=== PATIENT | male | born 1950 | race Caucasian/White ===

== ENCOUNTER 2022-04-06 09:11 | Inpatient (IN) | payer OTHER ==
[2022-04-06] MEDS ORDERED: SODIUM CHLORIDE 0.9% 500 ML 500 ML IV STA (09:17)
--- NOTE | 2022-04-06 09:26 | ED ---
General Adult HPI - General Chief complaint: Neuro Symptoms/Deficit Stated complaint: poss stroke Time Seen by Provider: 04/06/22 09:11 Source: patient, EMS, RN notes reviewed, old records reviewed Mode of arrival: EMS Limitations: no limitations - History of Present Illness Initial comments: This is a 72-year-old male who presents emergency Department with no significant past medical history. Patient comes in stating that he went to bed last night a t 9:00 until 5. Patient's states she woke up at 5:30 in the right side felt very heavy and he didn't get out of bed because he didn't feel right. Patient states he went back to sleep woke up a few hours later and was unable to lift his leg or move his right arm normally. Patient seemed to have some slurred speech according to EMS but the neighbor wasn't sure. Patient himself states he thinks his voice sounds normal. Patient denies any headache patient denies any left-sided symptoms. Patient denies any recent fever chills or cough per patient denies any chest pain patient denies any palpitations difficult breathing shortness of breath per patient denies any abdominal pain patient denies nausea vomiting diarrhea. - Related Data Allergies Allergy/AdvReac Type Severity Reaction Status Date / Time No Known Allergies Allergy Verified 04/06/22 09:16 Review of Systems ROS Statement: Those systems with pertinent positive or pertinent negative responses have been documented in the HPI. ROS Other: All systems not noted in ROS Statement are negative. Past Medical History Past Medical History: Hypertension History of Any Multi-Drug Resistant Organisms: None Reported Past Surgical History: Orthopedic Surgery Additional Past Surgical History / Comment(s): prostate Past Psychological History: No Psychological Hx Reported Smoking Status: Never smoker Past Alcohol Use History: None Reported Past Drug Use History: None Reported General Exam - General Exam Comments Initial Comments: GENERAL: Patient is well-developed and well-nourished. Patient is nontoxic and well- hydrated and is in no acute distress. ENT: Neck is soft and supple. No significant lymphadenopathy is noted. Oropharynx is clear. Moist mucous membranes. Neck has full range of motion without eliciting any pain. EYES: The sclera were anicteric and conjunctiva were pink and moist. Extraocular movements were intact and pupils were equal round and reactive to light. Eyelids were unremarkable. PULMONARY: Unlabored respirations. Good breath sounds bilaterally. No audible rales rhonchi or wheezing was noted. CARDIOVASCULAR: There is a regular rate and rhythm without any murmurs gallops or rubs. ABDOMEN: Soft and nontender with normal bowel sounds. SKIN: Skin is clear with no lesions or rashes and otherwise unremarkable. NEUROLOGIC: Patient is alert and oriented x3. Cranial nerves II through XII are grossly intact. Patient is weak with dorsiflexion on the right. Patient's c d reactor operator are equal bilaterally at this point. Speech seems slightly slurred to me. Symmetrical smile. Cerebellar testing is slightly off on the right finger to nose MUSCULOSKELETAL: Normal extremities with adequate strength and full range of motion. No lower extremity swelling or edema. No calf tenderness. LYMPHATICS: No significant lymphadenopathy is noted PSYCHIATRIC: Normal psychiatric evaluation. Limitations: no limitations Course Vital Signs 04/06/22 04/06/22 04/06/22 09:12 09:17 09:45 Temperature 98 F 98 F Pulse Rate 62 58 L 60 Respiratory 16 16 16 Rate Blood Pressure 189/99 189/91 168/85 O2 Sat by Pulse 100 99 99 Oximetry Medical Decision Making - Medical Decision Making EKG was interpreted by myself. EKG shows sinus bradycardia at 58 bpm HI inte rval is 227 QRSs 84 Q-T intervals 431 QTC is 427. Patient's EKG shows no ST segment elevation or depression. Was pt. sent in by a medical professional or institution ([facility], [employer], urgent care, hospital, or [place] health [place] facility...) When possible be specific @ -No Did you speak to anyone other than the patient for history (EMS, parent, family, police, friend...)? What history was obtained from this source @ -EMS gave their report and the treatment they provided and route Did you review nursing and triage notes (agree or disagree)? Why? @ -I reviewed and agree with nursing and triage notes Were old charts reviewed (outside hosp., previous admission, EMS record, old EKG, old radiological studies, urgent care reports/EKG's, [place] health [facility] facility records)? Report findings @ -No old charts were reviewed Differential Diagnosis (chest pain, altered mental status, abdominal pain women, abdominal pain men, vaginal bleeding, weakness, fever, dyspnea, syncope, headache, dizziness, GI bleed, back pain, seizure, CVA, palpatations, mental h ealth)? @ -CVA, TIA, cervical radiculopathy, lumbar radiculopathy, intracranial hemorrhage, paresthesias this is not an all inclusive list EKG interpreted by me (3pts min.). @ -As above X-rays interpreted by me (1pt min.). @ -Chest x-ray was interpreted by myself. X-ray shows no acute abnormality. CT interpreted by me (1pt min.). @ -Computed tomography scan of the brain was interpreted by myself. CT of the brain shows no acute abnormality. CT angiogram of the head and neck shows no acute abnormality per the radiologist U/S interpreted by me (1pt. min.). @ -None done What testing was considered but not performed or refused? (CT, X-rays, U/S, labs)? Why? @ -None What meds were considered but not given or refused? Why? @ -Alteplase was considered but since the patient was last seen normal at 9 PM last night he was out of the window. Did you discuss the management of the patient with other professionals (professionals i.e. , PA, MOTORCYCLE TESTER, lab, RT, psych nurse, social work nurse, vp customer service, teacher, special officer, social work case manager)? Give summary @ -I spoke with son physicians admitted the patient wrote admitting orders Was smoking cessation discussed for >3mins.? @ -No Was critical care preformed (if so, how long)? @ -Patient was a code stroke and I have documented 35 minutes of critical care time. Were there social determinants of health that impacted care today? How? (Homelessness, low income, unemployed, alcoholism, drug addiction, transportation, low edu. Level, literacy, decrease access to med. care, detention, rehab)? @ -No Was there de-escalation of care discussed even if they declined (Discuss DNR or withdrawal of care, Hospice)? DNR status @ -No What co-morbidities impacted this encounter? (DM, HTN, Smoking, COPD, CAD, Can cer, CVA, ARF, Chemo, Hep., AIDS, mental health diagnosis, sleep apnea, morbid obesity)? @ -None Was patient admitted / discharged? Hospital course, mention meds given and route, prescriptions, significant lab abnormalities, going to OR and other pertinent info. @ -Patient will be admitted. I spoke with son physicians here in agreement wit h admission for chest CT and CT angiogram of the head and neck show no acute normalities. Patient still has some residual deficit on the left foot for a while all other symptoms have resolved Undiagnosed new problem with uncertain prognosis? @ -CVA Drug Therapy requiring intensive monitoring for toxicity (Heparin, Nitro, Insulin, Cardizem)? @ -No Were any procedures done? @ -No Diagnosis/symptom? @ -CVA Acute, or Chronic, or Acute on Chronic? @ -Acute Uncomplicated (without systemic symptoms) or Complicated (systemic symptoms)? @ -Complicated Side effects of treatment? @ -No Exacerbation, Progression, or Severe Exacerbation? @ -No Poses a threat to life or bodily function? How? (Chest pain, [place], [place], pneumonia, PE, COPD, DKA, ARF, appy, cholecystitis, CVA, Diverticulitis, Homicidal, Suicidal, threat to staff... and all critical care pts) @ -Yes poses morbidity 2 patient's neurologic function - Lab Data Result diagrams: 04/06/22 09:18 04/06/22 09:18 Lab Results 04/06/22 04/06/22 04/06/22 Range/Units 09:18 09:18 09:18 WBC 8.8 (3.8-10.6) k/uL RBC 4.78 (4.30-5.90) m/uL Hgb 14.9 (13.0-17.5) gm/dL Hct 42.2 (39.0-53.0) % MCV 88.3 (80.0-100.0) fL MCH 31.2 (25.0-35.0) pg MCHC 35.3 (31.0-37.0) g/dL RDW 13.6 (11.5-15.5) % Plt Count 190 (150-450) k/uL MPV 10.1 Neutrophils % 91 % Lymphocytes % 6 % Monocytes % 3 % Eosinophils % 0 % Basophils % 0 % Neutrophils # 8.0 H (1.3-7.7) k/uL Lymphocytes # 0.5 L (1.0-4.8) k/uL Monocytes # 0.2 (0-1.0) k/uL Eosinophils # 0.0 (0-0.7) k/uL Basophils # 0.0 (0-0.2) k/uL PT 10.2 (9.0-12.0) sec INR 1.0 (<1.2) APTT 24.0 (22.0-30.0) sec Sodium 143 (137-145) mmol/L Potassium 3.5 (3.5-5.1) mmol/L Chloride 107 (98-107) mmol/L Carbon Dioxide 26 (22-30) mmol/L Anion Gap 10 mmol/L BUN 15 (9-20) mg/dL Creatinine 0.74 (0.66-1.25) mg/dL Est GFR (CKD-EPI)AfAm >90 (>60 ml/min/1.73 sqM) Est GFR (CKD-EPI)NonAf >90 (>60 ml/min/1.73 sqM) Glucose 135 H (74-99) mg/dL Calcium 8.5 (8.4-10.2) mg/dL Total Bilirubin 0.7 (0.2-1.3) mg/dL AST 31 (17-59) U/L ALT 30 (4-49) U/L Alkaline Phosphatase 133 H (38-126) U/L Troponin I (0.000-0.034) ng/mL Total Protein 6.8 (6.3-8.2) g/dL Albumin 4.4 (3.5-5.0) g/dL 04/06/22 Range/Units 09:18 WBC (3.8-10.6) k/uL RBC (4.30-5.90) m/uL Hgb (13.0-17.5) gm/dL Hct (39.0-53.0) % MCV (80.0-100.0) fL MCH (25.0-35.0) pg MCHC (31.0-37.0) g/dL RDW (11.5-15.5) % Plt Count (150-450) k/uL MPV Neutrophils % % Lymphocytes % % Monocytes % % Eosinophils % % Basophils % % Neutrophils # (1.3-7.7) k/uL Lymphocytes # (1.0-4.8) k/uL Monocytes # (0-1.0) k/uL Eosinophils # (0-0.7) k/uL Basophils # (0-0.2) k/uL PT (9.0-12.0) sec INR (<1.2) APTT (22.0-30.0) sec Sodium (137-145) mmol/L Potassium (3.5-5.1) mmol/L Chloride (98-107) mmol/L Carbon Dioxide (22-30) mmol/L Anion Gap mmol/L BUN (9-20) mg/dL Creatinine (0.66-1.25) mg/dL Est GFR (CKD-EPI)AfAm (>60 ml/min/1.73 sqM) Est GFR (CKD-EPI)NonAf (>60 ml/min/1.73 sqM) Glucose (74-99) mg/dL Calcium (8.4-10.2) mg/dL Total Bilirubin (0.2-1.3) mg/dL AST (17-59) U/L ALT (4-49) U/L Alkaline Phosphatase (38-126) U/L Troponin I <0.012 (0.000-0.034) ng/mL Total Protein (6.3-8.2) g/dL Albumin (3.5-5.0) g/dL Critical Care Time Critical Care Time: Yes Total Critical Care Time: 35 Disposition Clinical Impression: Cerebrovascular accident (CVA) Disposition: ADMITTED IP TO THIS [facility] Referrals: None,Stated [REFERRING] - 1-2 days Time of Disposition: 11:12
[2022-04-06 09:29] LABS: Basophils % (A) 0 %; Eosinophils % (A) 0 %; HCT 42.2 % (39.0-53.0); HGB 14.9 gm/dL (13.0-17.5); Lymphocytes # (A) 0.5 k/uL (1.0-4.8); Lymphocytes % (A) 6 %; MCH 31.2 pg (25.0-35.0); MCHC 35.3 g/dL (31.0-37.0); MCV 88.3 fL (80.0-100.0); Mean Platelet Volume 10.1; Monocytes # (A) 0.2 k/uL (0-1.0); Monocytes % (A) 3 %; Neutrophils % (A) 91 %; Platelet Count 190 k/uL (150-450); RBC 4.78 m/uL (4.30-5.90); RDW 13.6 % (11.5-15.5); WBC 8.8 k/uL (3.8-10.6)
--- NOTE | 2022-04-06 09:43 | CT ---
EXAMINATION TYPE: CT brain wo con for TPA CT DLP: 1104 mGycm, Automated exposure control for dose reduction was used. DATE OF EXAM: 04/06/2022 9:36 AM CLINICAL INDICATION:Male, 72 years old with history of Neuro deficit, acute, stroke suspected, Right side weakness TECHNIQUE: Brain: Axial CT images of the brain were obtained with coronal and sagittal reformats created and rev iewed. Contrast used: None. Oral contrast used: None. FINDINGS: Brain: Extra-axial spaces: No abnormal extra-axial fluid collections. Ventricular system: Dilatation in proportion to cerebral atrophy. Cerebral parenchyma: Cerebral atrophy. No acute intraparenchymal hemorrhage or mass effect. The voss -white junction is well differentiated. Scattered hypoattenuating areas are seen within the white mat ter. Cerebellum: Unremarkable. Mass effect: No evidence of midline shift. Intracranial vasculature: Atherosclerotic calcifications of the intracranial vessels. Soft tissues: Normal. Calvarium/osseous structures: No depressed skull fracture. Paranasal sinuses and mastoid air cells: Mild scattered paranasal sinus disease. Visualized orbits: Orbital contents are intact. IMPRESSION: 1. No acute intracranial process. 2. Nonspecific white matter changes, likely secondary to chronic small vessel ischemic disease.
[2022-04-06 09:50] LABS: Prothrombin Time 10.2 sec (9.0-12.0)
[2022-04-06 10:05] LABS: ALT 30 U/L (4-49); AST 31 U/L (17-59); African American GFR (CKD) >90 (>60 ml/min/1.73 sqM); Albumin 4.4 g/dL (3.5-5.0); Alkaline Phosphatase 133 U/L (38-126); Anion Gap 10 mmol/L; Blood Urea Nitrogen 15 mg/dL (9-20); Calcium 8.5 mg/dL (8.4-10.2); Carbon Dioxide 26 mmol/L (22-30); Chloride 107 mmol/L (98-107); Glucose 135 mg/dL (74-99); Non-African American GFR(CKD) >90 (>60 ml/min/1.73 sqM); Potassium 3.5 mmol/L (3.5-5.1); Sodium 143 mmol/L (137-145); Total Bilirubin 0.7 mg/dL (0.2-1.3); Total Protein 6.8 g/dL (6.3-8.2)
--- NOTE | 2022-04-06 10:15 | CT ---
EXAMINATION TYPE: CT angio head neck CT DLP: 444 mGycm, Automated exposure control for dose reduction was used. DATE OF EXAM: 04/06/2022 9:58 AM COMPARISON: CT head same day. CLINICAL INDICATION:Male, 72 years old with history of Neuro deficit, acute, stroke suspected; TECHNIQUE: Axially acquired helical CT angiogram of the head and neck was obtained with contrast. Axi al images are supplemented with 3D reconstructions [facility] NASCET criteria used. Contrast used: 65 mL of Isovue 370 Oral contrast used: None. FINDINGS: CTA HEAD: No evidence of acute intracranial hemorrhage, mass effect, or midline shift. The ventricles, sulci, a nd cisterns are unremarkable. The visualized portions of the internal carotid arteries, middle cerebral arteries, anterior cerebral arteries, and posterior cerebral arteries are patent. The basilar and vertebral arteries are patent. CTA NECK: Right Carotid System: The common carotid artery and external carotid artery are patent. The carotid bifurcation demonstrate s no evidence of hemodynamically significant stenosis. The remaining portions of the internal carotid artery demonstrate normal size without significant narrowing. Calcified atherosclerosis of the intra cranial internal carotid artery with blooming artifact which limits evaluation for stenosis. Left Carotid System: The common carotid artery and external carotid artery are patent. The carotid bifurcation demonstrate s no evidence of hemodynamically significant stenosis. The remaining portions of the internal carotid artery demonstrate normal size without significant narrowing. Calcified atherosclerosis of the intra cranial internal carotid artery with blooming artifact which limits evaluation for stenosis. Vertebral arteries are patent without evidence hemodynamically significant stenosis. There is a three-vessel aortic arch. The origins of the great vessels are patent. No evidence of hemo dynamically significant stenosis. IMPRESSION: 1. No evidence of dissection of the cervical internal carotid arteries or vertebral arteries or any e vidence of significant stenosis at the carotid bifurcations. 2. No evidence of intracranial high-grade stenosis or intracranial aneurysm.
--- NOTE | 2022-04-06 11:05 | XR ---
EXAMINATION TYPE: XR chest 2V DATE OF EXAM: 04/06/2022 10:35 AM COMPARISON: None TECHNIQUE: XR chest 2V Frontal and lateral views of the chest. CLINICAL INDICATION:Male, 72 years old with history of altered mental status; FINDINGS: Lungs/Pleura: There is no evidence of pleural effusion, focal consolidation, or pneumothorax. Pulmonary vascularity: Unremarkable. Heart/mediastinum: Cardiomediastinal silhouette is unremarkable. Musculoskeletal: No acute osseous pathology. IMPRESSION: No acute cardiopulmonary disease/process.
[2022-04-06] MEDS ORDERED: ASPIRIN 325 MG TAB PO STA (11:12)
--- NOTE | 2022-04-06 12:35 | P.HPIM ---
History of Present Illness H&P Date: 04/06/22 Chief Complaint: stroke Patient is a 72-year-old male with no significant past medical history presenting with strokelike symptoms. Last known normal was around 9 PM last night. He woke up this morning around 5 with right-sided weakness. He went back to sleep after feeling the weakness, and then woke up again a few hours later and was unable to lift his right leg or right arm. Per EMS, some slurred speech was also noted. Patient denies any recent chest pain, shortness of breath, abdominal pain, nausea, vomiting, palpitations, lightheadedness, urinary complaints, fevers, chills, travel history, or sick contacts. He denies any smoking, or illicit drug use. He however drinks occasionally, but sometimes drinks about 1 beer a day. In the ED, blood pressure was elevated to 180s, rest of the vital signs were otherwise within normal limits. Laboratory workup was unremarkable. CT head, CT angiogram did not show any acute process. Chest x-ray did not show any acute process. EKG showed sinus bradycardia with first-degree AV block. Patient seen and examined at bedside. Pertinent positives and negatives as discussed in HPI, a complete review of systems was performed and all other systems are negative. Vital signs reviewed General: nontoxic, no distress, appears at stated age Derm: warm, dry Head: atraumatic, normocephalic, symmetric Eyes: EOMI, no lid lag, anicteric sclera, pupils equal round reactive to light ENT: Nose and ears atraumatic Neck: No thyromegaly, supple Mouth: no lip lesion, mucus membranes moist Cardiovascular: S1S2 reg, no murmur, no edema Lungs: clear to auscultation bilateral, no rhonchi, no rales, no wheeze, no accessory muscle use Abdominal: soft, nontender to palpation, no guarding, no appreciable or ganomegaly Ext: no gross muscle atrophy, muscle strength muscle strength 4 out of 5 in right upper extremity, no contractures Neuro: CN II-XII grossly intact, dysarthria noted Psych: Alert, oriented, appropriate affect Assessment/Plan: Acute CVA Dysarthria Sinus bradycardia with first-degree AV block Alcohol use -Continue with permissive hypertension -Neurology consult -Echocardiogram, carotid ultrasound -Telemetry -Neuro checks -Lipid panel, A1c, TSH, -Continue aspirin and statin -PT/OT The patient is admitted with an anticipated greater than 2 midnight stay for evaluation of stroke. Surrogate decision-maker: Nephew CODE STATUS: Full code DVT prophylaxis: Subcu heparin Anticipated discharge date: Pending clinical course Anticipated discharge place: Pending clinical course A total of 58 minutes was spent on the care of this complex patient more than 50% of the time was spent in counseling and care coordination. Past Medical History Past Medical History: Hypertension History of Any Multi-Drug Resistant Organisms: None Reported Past Surgical History: Orthopedic Surgery Additional Past Surgical History / Comment(s): prostate Past Psychological History: No Psychological Hx Reported Smoking Status: Never smoker Past Alcohol Use History: None Reported Past Drug Use History: None Reported Medications and Allergies Home Medications Medication Instructions Recorded Confirmed Type No Known Home Medications 04/06/22 04/06/22 History Allergies Allergy/AdvReac Type Severity Reaction Status Date / Time No Known Allergies Allergy Verified 04/06/22 11:40 Physical Exam Vitals: Vital Signs Temp Pulse Resp BP Pulse Ox 04/06/22 09:45 60 16 168/85 99 04/06/22 09:17 98 F 58 L 16 189/91 99 04/06/22 09:12 98 F 62 16 189/99 100 Intake and Output 04/05/22 04/06/22 04/06/22 22:59 06:59 14:59 Other: Weight 72.575 kg Results CBC & Chem 7: 04/06/22 09:18 04/06/22 09:18 Labs: Abnormal Lab Results - Last 24 Hours (Table) 04/06/22 04/06/22 Range/Units 09:18 09:18 Neutrophils # 8.0 H (1.3-7.7) k/uL Lymphocytes # 0.5 L (1.0-4.8) k/uL Glucose 135 H (74-99) mg/dL Alkaline Phosphatase 133 H (38-126) U/L
[2022-04-06] MEDS ORDERED: CLOPIDOGREL 75 MG TAB PO STA (13:09)
--- NOTE | 2022-04-06 13:24 | P.CNNES ---
History of Present Illness Consult date: 04/06/22 Requesting physician: Victoriano Bruno Reason for Consult: CVA History of Present Illness: This is a 72-year-old gentleman with history of hypertension who presented emergency department because of right-sided weakness. According to the patient last normal state was yesterday about 9 PM. He stated that around 5 inch a.m. today he was at bed and was lying on his side and he felt his right side was weak and he got up and he continues to feel his right side was weak but denied any difficulty swallowing, visual disturbance, any numbness or tingling on the right side. He thought his symptoms would improve and they did not N by around 8 andry a.m. he decided that to come to the hospital. Patient denied of any neck pain. He presents to our facility today around 9:11am. Patient denies being on any antiplatelets or anticoagulation. Denies history of stroke. Denies of tobacco use. Or illicit drug use. He stated that he he has a diagnosis of hypertension and was notified by his physician in the past that he does not need to be on any medication. Some of the workup during our hospital visits consisted of: Initial blood pressure is 189/99. Otherwise rest of vitals are within normal limits. Initial serum glucose is 135 otherwise calcium AST ALT sodium BUN and creatinine is within normal limits PT, INR and PTT is within normal limits CT of the head is reported as no acute gram processes. Nonspecific white matter changes likely significant chronic small vessel ischemia. I personally reviewed the CT and there is no acute or subacute ischemia and there is no interpretable hemorrhage. CT angiography of the head and neck was reported as no evidence of dissection of cervical internal carotid arteries or vertebral artery or any evidence of significant stenosis at the carotid bifurcation. No evidence of intracranial high-grade stenosis or intracranial aneurysm. EKG is reported to sinus bradycardia with first-degree AV block with occasional PVC. Abnormal EKG. No IV TPA since last normal state was at 9 PM yesterday and the risk of TPA outweigh the benefit according to the ED team. Review of Systems Review of system: The 12 point system was reviewed and apparent positive and negative per HPI. Past Medical History Past Medical History: Hypertension History of Any Multi-Drug Resistant Organisms: None Reported Past Surgical History: Orthopedic Surgery Additional Past Surgical History / Comment(s): prostate Past Psychological History: No Psychological Hx Reported Smoking Status: Never smoker Past Alcohol Use History: None Reported Past Drug Use History: None Reported Medications and Allergies Home Medications Medication Instructions Recorded Confirmed Type No Known Home Medications 04/06/22 04/06/22 History Allergies Allergy/AdvReac Type Severity Reaction Status Date / Time No Known Allergies Allergy Verified 04/06/22 11:40 Physical Examination - Vital Signs Vital Signs: Vital Signs Temp Pulse Resp BP Pulse Ox 04/06/22 09:45 60 16 168/85 99 04/06/22 09:17 98 F 58 L 16 189/91 99 04/06/22 09:12 98 F 62 16 189/99 100 Intake and Output 04/05/22 04/06/22 04/06/22 22:59 06:59 14:59 Other: Weight 72.575 kg GENERAL: The patient is lying in bed and is not in acute distress. CHEST: The heart rate is regular rate rhythm. No murmurs to auscultation. LUNG: Clear to auscultation bilaterally no wheezing noted throughout. Not labored breathing. ABDOMEN/GI: Bowel sounds present in all 4 quadrants. No tenderness to palpation throughout. NEUROLOGICAL: Higher mental function: The patient is awake, alert, oriented to self, place and time. Patient is following commands. No aphasia and no neglect. Cranial nerves: The pupils are round, equal and reactive to light and ac commodation. Visual bah are full to confrontation throughout. Extraocular movement is intact no nystagmus is noted. Facial sensation is normal to touch throughout. The facial strength is normal throughout. Hearing is normal bilaterally to hand rub. Tongue is midline and moved [id number] without any difficulty. No dysarthria is noted. Shoulder shrug is normal bilaterally. Motor: The strength is right pronator drift and strength is 4+ and right hand machine operator replanter is 4+. Otherwise 5 over 5 throughout. Slight decrease tone over the right upper. Normal tone and bulk. Cerebellum: Had some difficulty with finger to nose on right but seems more weakness than ataxia or dysmetria. Otherwise normal on left. Sensation: Sensation is normal to touch throughout. Reflexes (right/left): 2+ throughout. Plantars are mute bilaterally. Results - Laboratory Findings CBC and BMP: 04/06/22 09:18 04/06/22 09:18 Abnormal Lab Findings: Abnormal Labs 01/08/23 01/08/23 09:18 09:18 Neutrophils # 8.0 H Lymphocytes # 0.5 L Glucose 135 H Alkaline Phosphatase 133 H Assessment and Plan Assessment: Acute right sided weakness seems due to likely acute ischemic stroke. Last normal as 9 PM on 04/05/22. On examination seems right lower has resolved and continues to have weakness on right upper. Escalated hypertension History of hypertension (medically managed) Plan: I ordered MRI of the brain to assess the size of the stroke. He denies of any neck pain suggestive of radiculopathy as well as his symptoms is acute onsets suggestive of acute ischemic stroke. But if MRI is negative consider MRI of the cervical spine. Rest of stroke workup are ordered: 2-D echo, lipid panel, carotid duplex by the primary team. TSH and hemoglobin A1c pending. Patient started on aspirin 81 mg daily and I started Plavix 75 mg daily (was not on antiplatelets at home). He was loaded with aspirin 325 once in the ED and I loaded him with Plavix 300 mg once. Continue Lipitor 40 mg daily for secondary stroke prophylaxis On neuro checks On cardiac monitoring PT OT and ST[employer]ARD[employer] are consulted Recommend permissive hypertension for 24 hours and then after that slowly lower the blood pressure to normotensive. We'll defer the rest of the medical management to primary team Fo DVT prophylaxis she is on subcu heparin 5000 units every 8 hours The plan was discussed with the patient and his nurse Thank you for the consultation Dr. Anderson will start neurology service tomorrow A.M. Time with Patient: Greater than 30
[2022-04-06] MEDS: ATORVASTATIN 40 MG TAB PO SCH (15:02)
[2022-04-06] MEDS: HEPARIN SODIUM,PORCINE/PF 5,000 UNIT/0.5 ML SYRINGE SQ SCH (16:53)
--- NOTE | 2022-04-06 21:55 | US ---
EXAMINATION TYPE: US carotid duplex BILAT DATE OF EXAM: 04/06/2022 COMPARISON: CTA neck earlier in day CLINICAL HISTORY: stoke. Weakness. HTN when first brought to from EMS. TECHNIQUE: Carotid duplex ultrasound examination. Indirect Doppler criteria was utilized. FINDINGS: EXAM MEASUREMENTS: RIGHT: Peak Systolic Velocity (PSV) cm/sec ----- Right CCA: 40.9 ----- Right ICA: 83.4 ----- Right ECA: 158.9 ICA/CCA ratio: 2.0 RIGHT: End Diastole cm/sec ----- Right CCA: 6.9 ----- Right ICA: 21.9 ----- Right ECA: 13.0 LEFT: Peak Systolic Velocity (PSV) cm/sec ----- Left CCA: 72.4 ----- Left ICA: 112.9 ----- Left ECA: 101.7 ICA/CCA ratio: 1.6 LEFT: End Diastole cm/sec ----- Left CCA: 9.8 ----- Left ICA: 19.2 ----- Left ECA: 8.5 VERTEBRALS (direction of flow): Right Vertebral: Antegrade Left Vertebral: Antegrade Rhythm: Normal SOFTWARE DEVELOPMENT COORDINATOR NOTES: Left elevated ECA velocity. No plaque visualized. IMPRESSION: No significant stenosis in either internal carotid artery. Findings correlate with more sensitive CT study earlier today. Criteria for Assigning % of Stenosis / Diameter reduction (Estimation based on the indirect measurements of the internal carotid artery velocities (ICA PSV). 1. Normal (no stenosis)=ICA PSV < 125 cm/s: ratio < 2.0: ICA EDV<40 cm/s. 2. Less than 50% stenosis=ICA PSV < 125 cm/s: ratio < 2.0: ICA EDV<40 cm/s. 3. 50 to 69% stenosis=ICA PSV of 125 to 230 cm/s: ration 2.0 ? 4.0: ICA EDV 40-100 cm/s. 4. Greater than 70% stenosis to near occlusion= ICA PSV > 230 cm/s: ratio > 4.0: ICA EDV > 100 cm/s. 5. Near occlusion= ICA PSV velocities may be low or undetectable: variable ratio and ICA EDV. 6. Total occlusion=unable to detect flow.
[2022-04-07] MEDS: HEPARIN SODIUM,PORCINE/PF 5,000 UNIT/0.5 ML SYRINGE SQ SCH ×4 (01:51→23:50)
[2022-04-07] MEDS ORDERED: ASPIRIN 325 MG TAB PO SCH (09:00)
[2022-04-07 09:02] LABS: Chol/HDL Ratio 3.83 Ratio; LDL Cholesterol,Calculated 122.6 mg/dL (0.0-131.0)
[2022-04-07] MEDS: CLOPIDOGREL 75 MG TAB PO SCH (09:14)
[2022-04-07] MEDS: ATORVASTATIN 40 MG TAB PO SCH (09:14)
[2022-04-07] MEDS: ASPIRIN 81 MG PO SCH (09:14)
--- NOTE | 2022-04-07 11:33 | P.PN ---
Subjective Progress Note Date: 04/07/22 Hospital Course: 72-year-old male with no significant past medical history presenting with strokelike symptoms. In the ED, blood pressure was elevated to 180s, rest of the vital signs were otherwise within normal limits. Laboratory workup was unremarkable. CT head, CT angiogram did not show any acute process. Chest x- ray did not show any acute process. EKG showed sinus bradycardia with first- degree AV block. Carotid ultrasound unremarkable. MRI brain and echocardiogram pending. Neurology following. Subjective: Patient seen and examined at bedside. No acute events overnight. He denies any further weakness. He claims that his strength in right upper extremity is slowly coming back. He denies any trouble swallowing. He denies any chest pain, shortness of breath, abdominal pain, urinary or bowel complaints. Pertinent positives and negatives as discussed above, a complete review of systems was performed and all other systems are negative. Vitals Signs Reviewed. General: nontoxic, no distress, appears at stated age Derm: warm, dry Head: atraumatic, normocephalic, symmetric Eyes: EOMI, no lid lag, anicteric sclera, pupils equal round reactive to light ENT: Nose and ears atraumatic Neck: No thyromegaly, supple Mouth: no lip lesion, mucus membranes moist Cardiovascular: S1S2 reg, no murmur, no edema Lungs: clear to auscultation bilateral, no rhonchi, no rales, no wheeze, no accessory muscle use Abdominal: soft, nontender to palpation, no guarding, no appreciable organomegaly Ext: no gross muscle atrophy, muscle strength muscle strength 4 out of 5 in right upper extremity, no contractures Neuro: CN II-XII grossly intact Psych: Alert, oriented, appropriate affect Assessment and Plan: Acute CVA Dysarthria -Neurology consult -Echocardiogram pending -carotid ultrasound unremarkable -Telemetry -Neuro checks -A1c and TSH within normal limits. -Total cholesterol 199, LDL 122. -Continue aspirin and statin, started on Plavix per neurology -Pending MRI brain -PT/OT Sinus bradycardia with first-degree AV block - Telemetry Alcohol use -Monitor for any withdrawal symptoms Hypertension -We'll start on amlodipine DVT ppx: Subcutaneous heparin Code status: Full code Anticipated discharge place: Home Anticipated discharge time: Clinic tomorrow Objective - Vital Signs Vital signs: Vital Signs Temp 98.3 F 04/06/22 16:09 Pulse 66 04/07/22 10:00 Resp 21 04/07/22 10:00 BP 166/90 04/07/22 10:00 Pulse Ox 99 04/07/22 10:00 FiO2 Intake & Output 04/06/22 04/07/22 04/07/22 18:59 06:59 18:59 Weight 72.575 kg - Labs CBC & Chem 7: 04/06/22 09:18 04/06/22 09:18
[2022-04-07] MEDS: amLODIPine 5 MG TAB PO SCH (12:33)
--- NOTE | 2022-04-07 13:47 | MR ---
EXAMINATION TYPE: MR brain wo con DATE OF EXAM: 04/07/2022 COMPARISON: CT brain 1 day earlier HISTORY: Right sided weakness, stroke TECHNIQUE: Multiplanar, multisequence imaging of the brain and brainstem is performed without IV cont rast. FINDINGS: Suboptimal study with some motion artifact aggravation. Diffusion weighted images demonstrate areas of increased signal on diffusion-weighted images with dim inished signal on ADC mapping involving the left aspect of the mid to lower greatest along the ventra l aspect axial image 48 series 303 showing subtle T2 hyperintensity consistent with evolving acute in farct. There is mild to moderate diffuse ventricular and sulcal prominence. There are few scattered tiny foc i of T2 hyperintensity that are seen throughout the white matter bilaterally Midline structures demonstrate normal morphology. The craniocervical junction appears within normal limits. Normal vascular flow voids are present. The visualized sinuses are clear and the globes are i ntact. Nasal septum redemonstrated deviated to right of midline. IMPRESSION: 1. Evolving acute lacunar infarct through the left mid to lower greatest along the ventral aspect. 2. Background mild to moderate diffuse cerebral atrophy and mild chronic small vessel ischemic change redemonstrated. Results communicated to ordering neurologist at time of dictation
--- NOTE | 2022-04-07 18:57 | P.PN ---
Subjective Progress Note Date: 04/07/22 Patient initially seen by Dr. Clarence Cabral. Please refer to his note for details. Patient is a 72-year-old right-handed male presenting with right-sided weakness. Patient did not receive IV TPA. Patient was started on aspirin and Plavix and statins. Patient denies diabetes. He does have hypertension. Patient says that she is feeling better. He is feeling good. His right leg is improving. He can lift his right leg much higher. No pain. He can lift his right arm. He can open his hand now which she was not able to do before. Denies any problems with double vision, nausea vomiting or dysphagia. Objective - Vital Signs Vital signs: Vital Signs Temp 97.4 F L 04/07/22 14:00 Pulse 88 04/07/22 14:00 Resp 14 04/07/22 14:00 BP 183/97 04/07/22 14:00 Pulse Ox 96 04/07/22 14:00 FiO2 Intake & Output 04/06/22 04/07/22 04/07/22 18:59 06:59 18:59 Weight 72.575 kg - Exam Patient is an elderly male, very pleasant, in no acute distress. Patient is alert awake oriented to time place and person. Speech and language functions are normal. Patient can name and repeat very well. No aphasia or dysarthria. Attention, concentration and fund of knowledge is adequate. On cranial nerve examination, pupils are equal, round and reacting to light, visual bah are full on confrontation, with no neglect on double simultaneous stimulation. Extraocular muscles are intact with no nystagmus. Face is symmetric, tongue protrudes to the midline. Palatal elevation and sensation normal, hearing and shoulder shrug normal, facial sensation normal. On muscle strength testing, there is right pronation, no drift and the strength is normal in arms and legs distally and proximally. Plantars are downgoing bilaterally. Sensory to touch is equal with no neglect on double simultaneous stimulation. Cerebellar function showed no ataxia for toykaa-ko-peol testing. No dysdiadochokinesia. No ataxia for [id number]-ia-[id number] testing on either side. Tone and bulk of muscles normal. Gait deferred.. On general examination, there is no carotid bruit or murmur, S1-S2 audible. Chest is clear on consultation. Abdomen is soft nontender. No organomegaly, fariha wel sounds present. Peripheral pulses are present. No edema. - Labs CBC & Chem 7: 04/06/22 09:18 04/06/22 09:18 Assessment and Plan Assessment: Acute ischemic stroke, left medullary region. Last normal as 9 PM on 04/05/22. Patient's examination almost normal, except for right pronation, no drift. Escalated hypertension History of hypertension (medically managed) Hyperlipidemia Plan: MRI of the brain revealed evolving acute lacunar infarct to the left mid to lower greatest along the ventral aspect. Mild to moderate diffuse cerebral atrophy and mild chronic small vessel ischemic change. I personally reviewed MRI, agree with the findings. The infarct involves the upper medulla left medial region ventrally. CT angiography of the head and neck was reported as no evidence of dissection of cervical internal carotid arteries or vertebral artery or any evidence of significant stenosis at the carotid bifurcation. No evidence of intracranial high-grade stenosis or intracranial aneurysm. Carotid Doppler revealed no significant stenosis in either ICA. Antegrade flow in both vertebral arteries. EKG is reported to sinus bradycardia with first-degree AV block with occasional PVC. Abnormal EKG. Lipid panel with cholesterol 199, LDL 122, HDL 52 and triglycerides 122. Patient has not been taking Lipitor for 2 years. We will resume his previous dose of Lipitor 40 mg daily to target LDL <70. Hemoglobin A1c 5.4. TSH normal 1.13 2-D echo, still pending. Patient started on aspirin 81 mg daily (after a loading dose of 325 mg in the ER) and Dr. Cabral started Plavix 75 mg daily after a load of 300 mg (was not on any antiplatelets at home). On neuro checks On cardiac monitoring, so far showing sinus rhythm, sinus bradycardia in 40s and some PVCs. PT OT and KEYPUNCH OPERATORS SUPERVISOR are consulted Recommend permissive hypertension for 24-48 hours and then after that slowly lower the blood pressure to normotensive. We'll defer the rest of the medical management to primary team Fo DVT prophylaxis she is on subcu heparin 5000 units every 8 hours Neurologically clear, once 2-D echo is cleared.
[2022-04-08] MEDS: ATORVASTATIN 40 MG TAB PO SCH (09:27)
[2022-04-08] MEDS: ASPIRIN 81 MG PO SCH (09:27)
[2022-04-08] MEDS: CLOPIDOGREL 75 MG TAB PO SCH (09:28)
[2022-04-08] MEDS: amLODIPine 5 MG TAB PO SCH (09:28)
[2022-04-08] MEDS: HEPARIN SODIUM,PORCINE/PF 5,000 UNIT/0.5 ML SYRINGE SQ SCH ×3 (09:28→23:14)
[2022-04-08 09:38] VITALS: RESP 16
--- NOTE | 2022-04-08 11:05 | CA ---
Transthoracic Echo Report Name: Henrik Pina Age: 72 Gender: M : 1950 Exam Date: 04/08/2022 09:03 Exam Location: [facility] Ht (in): 68 Wt (lb): 160 Ordering Physician: Balbir Bah MD Attending/Referring Phys: Swaging Machine Operator Debbi Akers RDCS Procedure CPT: Indications: stroke Cardiac Hx: Technical Quality: Contrast 1: Total Dose (mL): Contrast 2: Total Dose (mL): MEASUREMENTS (Male / Female) Normal Values 2D ECHO LV Diastolic Diameter PLAX 4.2 cm 4.2 - 5.9 / 3.9 - 5.3 cm LV Systolic Diameter PLAX 3.3 cm IVS Diastolic Thickness 0.9 cm 0.6 - 1.0 / 0.6 - 0.9 cm LVPW Diastolic Thickness 1.2 cm 0.6 - 1.0 / 0.6 - 0.9 cm LV Relative Wall Thickness 0.5 RV Internal Dim ED PLAX 2.9 cm LA Systolic Diameter LX 3.0 cm 3.0 - 4.0 / 2.7 - 3.8 cm LV Diastolic Volume MOD BP 49.8 cm??? 67 - 155 / 56 - 104 cm??? LV Systolic Volume MOD BP 20.4 cm??? 22 - 58 / 19 - 49 cm??? LV Ejection Fraction MOD BP 58.9 % >= 55 % LV Diastolic Volume MOD 4C 56.6 cm??? LV Systolic Volume MOD 4C 24.4 cm??? LV Ejection Fraction MOD 4C 56.9 % LV Diastolic Length 4C 7.8 cm LV Systolic Length 4C 6.9 cm LV Diastolic Volume MOD 2C 40.8 cm??? LV Systolic Volume MOD 2C 15.9 cm??? LV Ejection Fraction MOD 2C 61.1 % LV Diastolic Length 2C 7.2 cm LV Systolic Length 2C 6.2 cm LA Volume 49.2 cm??? 18 - 58 / 22 - 52 cm??? M-MODE Aortic Root Diameter MM 2.5 cm LA Systolic Diameter MM 3.7 cm LA Ao Ratio MM 1.5 MV E Point Septal Separation 0.7 cm AV Cusp Separation MM 1.9 cm DOPPLER MV Area PHT 3.1 cm??? Mitral E Point Velocity 71.0 cm/s Mitral A Point Velocity 80.7 cm/s Mitral E to A Ratio 0.9 MV Deceleration Time 244.9 ms MV E' Velocity 7.3 cm/s Mitral E to MV E' Ratio 9.7 TR Peak Velocity 162.9 cm/s TR Peak Gradient 10.6 mmHg Right Ventricular Systolic Press 15.6 mmHg FINDINGS Left Ventricle Left ventricular ejection fraction is estimated at 55 %. Left ventricular cavity size normal. Mildly increased left ventricular wall thickness. Right Ventricle Normal right ventricular size and function. Right ventricular systolic pressure within normal limits. Right Atrium Normal right atrial size. Left Atrium Normal left atrial size. Mitral Valve Structurally normal mitral valve. Mild mitral regurgitation. Aortic Valve Trileaflet aortic valve. Aortic valve sclerosis. Tricuspid Valve Structurally normal tricuspid valve. Mild tricuspid regurgitation. Pulmonic Valve Structurally normal pulmonic valve. Pericardium Echo free space anterior to the right ventricle likely represents a fat pad. Aorta Normal size aortic root and proximal ascending aorta. CONCLUSIONS Normal LV size and systolic function with mild concentric LVH. It is mild mitral and tricuspid insufficiency. There is mild mitral annular calcification and aortic valve sclerosis without restriction. There is probably a fat pad. Previewed by: Dr. Deisy Floyd MD (Electronically Signed) Final Date: 08 April 2022 11:04
--- NOTE | 2022-04-08 13:48 | P.PN ---
Subjective Progress Note Date: 04/08/22 Hospital Course: 72-year-old male with no significant past medical history presenting with strokelike symptoms. In the ED, blood pressure was elevated to 180s, rest of the vital signs were otherwise within normal limits. Laboratory workup was unremarkable. CT head, CT angiogram did not show any acute process. Chest x- ray did not show any acute process. EKG showed sinus bradycardia with first- degree AV block. Carotid ultrasound unremarkable. MRI brain showed evolving acute lacunar infarct through the left mid to lower greatest along the ventral aspect. Echocardiogram showed normal LV size and systolic function with mild concentric LVH, mild MR and TR.. Neurology following. Subjective: Patient seen and examined at bedside. No acute events overnight. He denies any further weakness. He claims that his strength in right upper extremity is almost back to normal. He denies any trouble swallowing. He denies any chest pain, shortness of breath, abdominal pain, urinary or bowel complaints. Pertinent positives and negatives as discussed above, a complete review of s ystems was performed and all other systems are negative. Vitals Signs Reviewed. General: nontoxic, no distress, appears at stated age Derm: warm, dry Head: atraumatic, normocephalic, symmetric Eyes: EOMI, no lid lag, anicteric sclera, pupils equal round reactive to light ENT: Nose and ears atraumatic Neck: No thyromegaly, supple Mouth: no lip lesion, mucus membranes moist Cardiovascular: S1S2 reg, no murmur, no edema Lungs: clear to auscultation bilateral, no rhonchi, no rales, no wheeze, no accessory muscle use Abdominal: soft, nontender to palpation, no guarding, no appreciable organom egaly Ext: no gross muscle atrophy, muscle strength muscle strength 5 out of 5 in all extremities, no contractures Neuro: CN II-XII grossly intact Psych: Alert, oriented, appropriate affect Assessment and Plan: Acute CVA Dysarthria -Neurology consult -Echocardiogram pending normal LV function -carotid ultrasound unremarkable -Telemetry -Neuro checks -A1c and TSH within normal limits. -Total cholesterol 199, LDL 122. -Continue aspirin and statin, and on Plavix per neurology -MRI brain shows lacunar infarct -PT/OT Sinus bradycardia with first-degree AV block - Telemetry Alcohol use -Monitor for any withdrawal symptoms Hypertension -on amlodipine DVT ppx: Subcutaneous heparin Code status: Full code Anticipated discharge place: Home Anticipated discharge time: tomorrow Objective - Vital Signs Vital signs: Vital Signs Temp 97.8 F 04/08/22 12:24 Pulse 64 04/08/22 12:24 Resp 16 04/08/22 12:24 BP 173/83 04/08/22 12:24 Pulse Ox 99 04/08/22 12:24 FiO2 Intake & Output 04/07/22 04/08/22 04/08/22 18:59 06:59 18:59 Intake Total 236 Balance 236 Intake: Oral 236 Other: # Voids 2 - Labs CBC & Chem 7: 04/06/22 09:18 04/06/22 09:18
[2022-04-09 04:05] VITALS: TEMP 97.7
[2022-04-09] MEDS: HEPARIN SODIUM,PORCINE/PF 5,000 UNIT/0.5 ML SYRINGE SQ SCH (09:25)
[2022-04-09] MEDS: amLODIPine 5 MG TAB PO SCH (09:25)
[2022-04-09] MEDS: ATORVASTATIN 40 MG TAB PO SCH (09:26)
[2022-04-09] MEDS: ASPIRIN 81 MG PO SCH (09:26)
[2022-04-09] MEDS: CLOPIDOGREL 75 MG TAB PO SCH (09:26)
[2022-04-09 09:44] VITALS: BP 150/87; PULSE 59
--- NOTE | 2022-04-09 12:13 | P.PN ---
Subjective Progress Note Date: 04/08/22 04/08/2022: Patient was seen for a follow-up. Patient offers no complaints. All symptoms have resolved. 04/07/2022: Patient initially seen by Dr. Clarence Cabral. Please refer to his note for details. Patient is a 72-year-old right-handed male presenting with right-sided weakness. Patient did not receive IV TPA. Patient was started on aspirin and Plavix and statins. Patient denies diabetes. He does have hypertension. Patient says that she is feeling better. He is feeling good. His right leg is improving. He can lift his right leg much higher. No pain. He can lift his right arm. He can open his hand now which she was not able to do before. Denies any problems with double vision, nausea vomiting or dysphagia. Objective - Vital Signs Vital signs: Vital Signs Temp 97.8 F 04/08/22 12:24 Pulse 64 04/08/22 12:24 Resp 16 04/08/22 12:24 BP 173/83 04/08/22 12:24 Pulse Ox 99 04/08/22 12:24 FiO2 Intake & Output 04/07/22 04/08/22 04/08/22 18:59 06:59 18:59 Intake Total 236 Balance 236 Intake: Oral 236 Other: # Voids 2 - Exam Patient is an elderly male, very pleasant, in no acute distress. Patient is alert awake oriented to time place and person. Speech and language functions are normal. Patient can name and repeat very well. No aphasia or dysarthria. Attention, concentration and fund of knowledge is adequate. On cranial nerve examination, pupils are equal, round and reacting to light, visual bah are full on confrontation, with no neglect on double simultaneous stimulation. Extraocular muscles are intact with no nystagmus. Face is symmetric, tongue protrudes to the midline. Palatal elevation and sensation normal, hearing and shoulder shrug normal, facial sensation normal. On muscle strength testing, there is right pronation, no drift and the strength is normal in arms and legs distally and proximally. Plantars are downgoing bilaterally. Sensory to touch is equal with no neglect on double simultaneous stimulation. Cerebellar function showed no ataxia for [id number] testing. No dysdiadochokinesia. No ataxia for [id number] testing on either side. Tone and bulk of muscles normal. Gait deferred.. On general examination, there is no carotid bruit or murmur, S1-S2 audible. Chest is clear on consultation. Abdomen is soft nontender. No organomegaly, bowel sounds present. Peripheral pulses are present. No edema. - Labs CBC & Chem 7: 04/06/22 09:18 04/06/22 09:18 Assessment and Plan Assessment: Acute ischemic stroke, left medullary region. Patient's examination almost normal, except for right pronation, no drift. Escalated hypertension History of hypertension (medically managed) Hyperlipidemia Plan: MRI of the brain revealed evolving acute lacunar infarct involving the left medullary region greatest along the ventral aspect. Mild to moderate diffuse cerebral atrophy and mild chronic small vessel ischemic change. I personally reviewed MRI, agree with the findings. The infarct involves the upper medulla left medial region ventrally. CT angiography of the head and neck was reported as no evidence of dissection of cervical internal carotid arteries or vertebral artery or any evidence of significant stenosis at the carotid bifurcation. No evidence of intracranial high-grade stenosis or intracranial aneurysm. Carotid Doppler revealed no significant stenosis in either ICA. Antegrade flow in both vertebral arteries. Lipid panel with cholesterol 199, LDL 122, HDL 52 and triglycerides 122. Patient has not been taking Lipitor for 2 years. We will resume his previous dose of Lipitor 40 mg daily to target LDL <70. Hemoglobin A1c 5.4. TSH normal 1.13 2-D echo, revealed normal left-ventricular size and systolic function with mild concentric LVH. Mild mitral and tricuspid insufficiency. Mild mitral annular calcification and aortic valve sclerosis without restriction. Left atrial size is normal. Patient started on aspirin 81 mg daily (after a loading dose of 325 mg in the ER) and Dr. Cabral started Plavix 75 mg daily after a load of 300 mg (was not on any antiplatelets at home). Recommend patient stay on dual antiplatelet medication for 21 days and then stop Plavix and continue aspirin indefinitely. On cardiac monitoring, so far showing sinus rhythm, sinus bradycardia in 40s and some PVCs. PT OT and [employer] are consulted Optimize control of blood pressure to target <130/80. We'll defer the rest of the medical management to primary team Fo DVT prophylaxis she is on subcu heparin 5000 units every 8 hours Neurologically clear for discharge.
--- NOTE | 2022-04-09 14:23 | P.DS ---
Providers Date of admission: 04/06/22 11:12 Expected date of discharge: 04/09/22 Attending physician: Jessica Gutierrez MD Consults: 04/06/22 11:13 Consult Physician Routine Consulting Provider: Clarence Cabral Consult Reason/Comments: CVA Do you want consulting provider notified?: Yes Primary care physician: Physician Nonstaff Hospital Course: Assessment and Plan: Acute CVA Dysarthria Sinus bradycardia with first-degree AV block Alcohol use Hypertension 72-year-old male with no significant past medical history presenting with strokelike symptoms. In the ED, blood pressure was elevated to 180s, rest of the vital signs were otherwise within normal limits. Laboratory workup was unremarkable. CT head, CT angiogram did not show any acute process. Chest x- ray did not show any acute process. EKG showed sinus bradycardia with first- degree AV block. Carotid ultrasound unremarkable. MRI brain showed evolving acute lacunar infarct through the left mid to lower greatest along the ventral aspect. Echocardiogram showed normal LV size and systolic function with mild concentric LVH, mild MR and TR.. Neurology followed along with appropriate recommendations. Patient was discharged home with 21 days of plavix, as well as lifelong aspirin, atorvastatin, and amlodipine. He will f/u with PCP I spent 34 minutes coordinating this discharge. Gen: awake, alert HEENT: normocephalic, atraumatic, good hearing acuity, moist mucous membranes Resp: good air exchange, breathing comfortably with no accessory muscle use CVS: good distal perfusion x 4, GI: soft, NTTP, ND : no SPT, no CVAT, lim catheter not present MSK: no pitting edema, no clubbing Neuro: non-focal, moving all extremities Psych: cooperative, euthymic mood Patient Condition at Discharge: Good Plan - Discharge Summary Discharge Rx Participant: No New Discharge Prescriptions: New Aspirin 81 mg PO DAILY #30 tab Atorvastatin [Lipitor] 40 mg PO DAILY #30 tab amLODIPine [Norvasc] 5 mg PO DAILY #30 tab Clopidogrel [Plavix] 75 mg PO DAILY #21 tab Discharge Medication List Aspirin 81 mg PO DAILY #30 tab 04/09/22 [Rx] Atorvastatin [Lipitor] 40 mg PO DAILY #30 tab 04/09/22 [Rx] Clopidogrel [Plavix] 75 mg PO DAILY #21 tab 04/09/22 [Rx] amLODIPine [Norvasc] 5 mg PO DAILY #30 tab 04/09/22 [Rx] Follow up Appointment(s)/Referral(s): None,Stated [REFERRING] - 1-2 days Patient Instructions/Handouts: Ischemic Stroke (GEN) Activity/Diet/Wound Care/Special Instructions: Among your new medications are: Aspirin, Atorvastatin, Amlodipine, and Plavix Aspirin and Plavix are for you're stroke treatment and future prevention - take Aspirin daily henceforth unless otherwise advised by your primary care physician. Take Plavix (clopidogrel) for 21 days, then stop taking this medication unless otherwise advised by your neurologist. Atorvastatin is for your cholesterol and for stroke prevention - take atorvastatin henceforth unless otherwise advised by your primary care physician Amlodipine is for your blood pressure - take amlodipine henceforth unless otherwise advised by your primary care physician Discharge Disposition: HOME SELF-CARE
== END 2022-04-09 14:07 | disposition home or self-care (01) | DRG 65 ==
LOC: EC 09:11 → 3SCARD 11:12
PROVIDERS: ADMIT Family Medicine; ATTEND Family Medicine
DX: I63.81 Other cerebral infarction due to occlusion or stenosis of small artery (principal); G81.91 Hemiplegia, unspecified affecting right dominant side; I10 Essential (primary) hypertension; I44.0 Atrioventricular block, first degree; I08.3 Combined rheumatic disorders of mitral, aortic and tricuspid valves; R47.1 Dysarthria and anarthria; E78.5 Hyperlipidemia, unspecified; R00.1 Bradycardia, unspecified; F10.90 Alcohol use, unspecified, uncomplicated; Z85.46 Personal history of malignant neoplasm of prostate
CPT/HCPCS: 36415; 70450; 70496; 70498; 70551; 71046; 80053; 80061; 83036; 84443; 84484; 85025; 85610; 85730; 93005; 93306; 93880; 94760; 96372; 99291